=== PATIENT | female | born 1970 | race Caucasian/White ===

== ENCOUNTER 2023-08-25 12:43 | Emergency (ER) | payer BC, SELFPAY ==
[2023-08-25 13:00] VITALS: BP 133/84; PULSE 78; RESP 18; TEMP 36.6; O2SAT 100
--- NOTE | 2023-08-25 13:03 | ED.EYEPROB ---
HPI - Eye Problem General Chief complaint: Eye Problems Stated complaint: lt eye irritation Time Seen by Provider: 08/25/23 13:03 Source: patient Mode of arrival: ambulatory Limitations: no limitations History of Present Illness HPI Narrative: 53-year-old female presents with complaint of left eye redness, purulence drainage, irritation and itching started yesterday. Patient wears contacts. Does not sleep in her contacts. No history of contact related I infections. Denies injury. No vision changes. All systems reviewed and negative except as noted above. Related Data Allergies Allergy/AdvReac Type Severity Reaction Status Date / Time No Known Allergies Allergy Unverified 01/20/18 11:03 Review of Systems Review of Systems: CONSTITUTIONAL: Denies fever, chills, or sweats. EYES: Reports left eye redness, drainage, itching. Denies vision changes. ENT: Denies rhinorrhea, congestion, sore throat, or otalgia. CARDIOVASCULAR: Denies chest pain, palpitations, or edema. RESPIRATORY: Denies cough or dyspnea. GASTROINTESTINAL: Denies abdominal pain, nausea, vomiting, or diarrhea. GENITOURINARY: Denies dysuria or hematuria. SKIN: Denies rash or itching. MUSCULOSKELETAL: Denies back pain, joint pain, or myalgia. NEUROLOGIC: Denies headache, numbness, or weakness. PSYCHIATRIC: Denies anxiety or depression. All other systems reviewed are negative, except as documented in HPI. PMFSH Comments At time of signature, agree with nursing past medical, surgical, social and family history. There is no relevant family history pertinent to the presenting complaint. Exam Narrative: GENERAL: This is a well-nourished, well-developed patient, in no apparent distress. HEAD: normocephalic, atraumatic. EYES: PERRL. Sclera And conjunctiva of left eye erythematous. Conjunctivae mild swelling. No drainage noted at this time. Vision is grossly intact. EARS: External ears normal NOSE: External nose normal NECK: Neck supple, non-tender without lymphadenopathy, masses or thyromegaly. CARDIOVASCULAR: Regular rate and rhythm without murmurs, gallops, or rubs. RESPIRATORY: Clear to auscultation. Breath sounds equal bilaterally. No wheezes, rales, or rhonchi. SKIN: warm, Dry, intact with no suspicious lesions or rash, good texture and turgor. NEURO: awake, alert, and oriented to person, place and time. There were no obvious focal neurologic abnormalities. EXTREMITIES: No joint tenderness, effusion, or edema noted. Course Course Level of Care: Express Care Visit Vital Signs Vital signs: Vital Signs Temperature 36.6 C 08/25/23 13:00 Pulse Rate 78 08/25/23 13:00 Respiratory Rate 18 08/25/23 13:00 Blood Pressure 133/84 08/25/23 13:00 Pulse Oximetry 100 08/25/23 13:00 Oxygen Delivery Room Air 08/25/23 13:00 Temperature 36.6 C 08/25/23 13:00 Pulse Rate 78 08/25/23 13:00 Respiratory Rate 18 08/25/23 13:00 Blood Pressure 133/84 08/25/23 13:00 Pulse Oximetry 100 08/25/23 13:00 Oxygen Delivery Room Air 08/25/23 13:00 Reviewed MDM - Eye Problem MDM Narrative Medical decision making narrative: Patient is aware of diagnosis, understands and agrees to treatment plan. Anticipatory guidance given. Patient agrees to follow-up as directed and is aware of reasons to seek care at the emergency department. Portions of this record may have been created with voice recognition software Differential Diagnosis Differential diagnosis: Likely conjunctivitis Discharge Plan Discharge Clinical Impression: Acute bacterial conjunctivitis of left eye Patient Disposition: Home, Self-Care Condition: Stable Instructions: Antibiotic Form, Conjunctivitis (ED) Additional Instructions: Please antibiotic eyedrops as prescribed. Wash hands before and after placing drops. Do not wear a new pair of contacts until all symptoms have resolved. Follow-up with an senior label specialist if symptoms
== END 2023-08-25 13:11 | disposition home or self-care (01) ==
PROVIDERS: Emergency Provider Nurse Practitioner Family; PCP Physician Assistant Medical
DX: H10.32 Unspecified acute conjunctivitis, left eye (principal)
CPT/HCPCS: 99213; G0463

== ENCOUNTER 2023-12-21 09:09 | Emergency (ER) | payer BC, SELFPAY ==
[2023-12-21 09:57] VITALS: BP 158/80; PULSE 78; RESP 16; TEMP 36.8; O2SAT 100
[2023-12-21 09:59] VITALS: BP 158/80; PULSE 78; RESP 16; TEMP 36.8; O2SAT 100
--- NOTE | 2023-12-21 10:26 | ED.SKABFB ---
HPI - Skin/Abscess/Foreign Bdy General Chief complaint: Skin/Abscess/Foreign Body Stated complaint: dry skin,both ears Time Seen by Provider: 12/21/23 10:18 Source: patient and RN notes reviewed Mode of arrival: ambulatory Limitations: no limitations History of Present Illness HPI narrative: Patient presents today complaining of irritation with dry and peeling skin to both external ears x1 month. Patient states symptoms started after she was sweating when her furnace was turned up at home. States the area in which the rash exists has not been worsening since onset. She has tried some salicylic acid lotion at home without relief. Patient does have psoriasis for which she uses Cosentyx. She has not had a psoriasis outbreak in several years. Related Data Home Medications Medication Instructions Recorded Confirmed hydroxychloroquine 200 mg tablet 200 mg PO BID 12/21/23 12/21/23 norethindrone 1 mg-ethinyl 1 tablet PO DAILY 12/21/23 12/21/23 estradiol 10 mcg (24)-iron 10 mcg(2) tablet (Lo Loestrin Fe) secukinumab 150 mg/mL subcutaneous 75 mg subcut WEEKLY 12/21/23 12/21/23 pen injector (Cosentyx Pen 300 mg/2 Pens () Allergies Allergy/AdvReac Type Severity Reaction Status Date / Time No Known Allergies Allergy Verified 12/21/23 09:37 Review of Systems Review of Systems: CONSTITUTIONAL: Denies body aches, fever, chills, or sweats. EYES: Denies visual changes, redness, or discharge. ENT: Denies rhinorrhea, congestion, sore throat, or otalgia. CARDIOVASCULAR: Denies chest pain, palpitations, or edema. RESPIRATORY: Denies cough or dyspnea. GASTROINTESTINAL: Denies abdominal pain, nausea, vomiting, or diarrhea. GENITOURINARY: Denies dysuria or hematuria. SKIN: + flaking peeling skin of bilateral ears MUSCULOSKELETAL: Denies back pain, joint pain, or myalgia. NEUROLOGIC: Denies headache, numbness, tingling, or weakness. PSYCH: Denies depression or anxiety. [facility] Past Medical History Medical History (Updated 12/21/23 @ 10:32 by Dilia Pablo, [employer], [employer]) Psoriasis Comments At time of signature, I have reviewed and agree with nursing past medical, surgical, social and family history unless otherwise noted. Please see nursing chart for further information. There is no relevant family history pertinent to the presenting complaint Exam Narrative: GENERAL: Well-appearing, well-nourished, and in no acute distress. HEAD: Normocephalic, atraumatic. EYES: EOMI. No redness or drainage. Conjunctivae normal. ENT: Mucous membranes pink and moist. NECK: Normal AROM. CHEST: No respiratory distress. EXTREMITIES: Normal range of motion. No edema. SKIN: Warm, dry. Bilateral external ears are mildly erythematous with excessive peeling and cracking of the entire external ear with erythema along the pre and post a regular area. This peeling skin does not include the ear canal. There is even scant edema to the external ear. There is no plaques to the affected area. No drainage. NEURO: No focal deficits. Alert and oriented x3. Gait steady. PSYCH: Normal affect. No signs of depression or anxiety. Course Course Level of Care: Express Care Visit Vital Signs Vital signs: Vital Signs Temperature 98.2 F 12/21/23 09:57 Pulse Rate 78 12/21/23 09:57 Respiratory Rate 16 12/21/23 09:57 Blood Pressure 158/80 H 12/21/23 09:57 Pulse Oximetry 100 12/21/23 09:57 Oxygen Delivery Room Air 12/21/23 09:57 Temperature 98.2 F 12/21/23 09:59 Pulse Rate 78 12/21/23 09:59 Respiratory Rate 16 12/21/23 09:59 Blood Pressure 158/80 H 12/21/23 09:59 Pulse Oximetry 100 12/21/23 09:59 Oxygen Delivery Room Air 12/21/23 09:59 Reviewed MDM - Skin/Abscess/Foreign Bdy MDM Narrative Medical decision making narrative: Patient's ears seem to be eczematous as opposed to having psoriasis plaques. They do not seem to have an infectious component at this time. Will prescribe a topical
== END 2023-12-21 10:36 | disposition home or self-care (01) ==
PROVIDERS: Emergency Provider Nurse Practitioner
DX: L30.9 Dermatitis, unspecified (principal); L40.9 Psoriasis, unspecified
CPT/HCPCS: 99213; G0463

== ENCOUNTER 2024-05-07 16:55 | Emergency (ER) | payer BC, SELFPAY ==
[2024-05-07 17:00] VITALS: BP 138/79; PULSE 82; RESP 16; TEMP 36.5; O2SAT 100
[2024-05-07 17:04] VITALS: BP 138/79; PULSE 82; RESP 16; TEMP 36.5; O2SAT 100
--- NOTE | 2024-05-07 17:08 | ED.EAR ---
HPI - Ear Problem General Chief complaint: Ear Stated complaint: ear infection Source: patient Mode of arrival: ambulatory Limitations: no limitations History of Present Illness HPI Narrative: 53-year-old female presented complaint of intermittent left ear pain for about 2 weeks. She states it started after she had water in the ear. States the pain worsened this morning and she is unable to hear out of the ear. Denies ear drainage, tinnitus, dizziness, nausea, vomiting, nasal congestion, fever. Has taken ibuprofen. MD Complaint: ear pain Related Data Home Medications Medication Instructions Recorded Confirmed hydroxychloroquine 200 mg tablet 200 mg PO BID 12/21/23 05/07/24 norethindrone 1 mg-ethinyl 1 tablet PO DAILY 12/21/23 05/07/24 estradiol 10 mcg (24)-iron 10 mcg(2) tablet (Lo Loestrin Fe) risankizumab-rzaa 150 mg/mL mg subcut 05/07/24 05/07/24 subcutaneous pen injector (Skyrizi) Allergies Allergy/AdvReac Type Severity Reaction Status Date / Time No Known Allergies Allergy Verified 05/07/24 17:03 Review of Systems Review of Systems: CONSTITUTIONAL: Denies malaise, chills, or fever. EYES: Denies visual changes, redness, or discharge. ENT: Denies rhinorrhea, congestion, sinus pain, and sore throat. Reports ear pain CARDIOVASCULAR: Denies chest pain, palpitations, or edema. RESPIRATORY: Denies cough or dyspnea. GASTROINTESTINAL: Denies abdominal pain, nausea, vomiting, diarrhea SKIN: Denies rash or itching. MUSCULOSKELETAL: Denies myalgia. NEUROLOGIC: Denies headache. All systems reviewed & are unremarkable except as noted in HPI and below PMFSH Past Medical History Medical History Psoriasis Comments At time of signature, agree with nursing past medical, surgical, social and family history. There is no relevant family history pertinent to the presenting complaint Exam Narrative: GENERAL: Well-appearing EYES: PERRLA, conjunctivae clear ENT: Nares clear. Mucous membranes moist. Right TM pearly carbajal with dull light reflex; left TM erythematous, bulging and intact with purulent effusion; canal erythematous, no drainage to canal no tragal tenderness. Oropharynx not erythematous without lesions. NECK: Supple. No lymphadenopathy CHEST: Clear to auscultation, breath sounds equal. HEART: Regular rate and rhythm. No murmur heard. SKIN: Warm, dry, no rash. NEURO: Alert and oriented x3. PSYCH: Normal mood and affect Course Course Emergency Course: Patient is aware of diagnosis, understands and agrees to treatment plan. Anticipatory guidance given. Patient agrees to follow-up as directed and is aware of reasons to seek care at the emergency department. Portions of this record may have been created with voice recognition software Level of Care: Express Care Visit Vital Signs Vital signs: Vital Signs Temperature 97.7 F 05/07/24 17:00 Pulse Rate 82 05/07/24 17:00 Respiratory Rate 16 05/07/24 17:00 Blood Pressure 138/79 05/07/24 17:00 Pulse Oximetry 100 05/07/24 17:00 Oxygen Delivery Room Air 05/07/24 17:00 Temperature 97.7 F 05/07/24 17:04 Pulse Rate 82 05/07/24 17:04 Respiratory Rate 16 05/07/24 17:04 Blood Pressure 138/79 05/07/24 17:04 Pulse Oximetry 100 05/07/24 17:04 Oxygen Delivery Room Air 05/07/24 17:04 Reviewed Medical Decision Making MDM Narrative Medical decision making narrative: Discussed physical exam findings consistent with both AOM and otitis externa. Reviewed prescriptions. Advised supportive measures and signs/symptoms to go to the ER. Patient is appropriate for outpatient treatment and follow-up. Differential Diagnosis Differential Diagnosis: Coronavirus, strep pharyngitis, allergic rhinitis, upper respiratory tract infection, sinusitis, rhinosinusitis, nasopharyngitis, viral pharyngitis, otitis media, otitis externa, eustachian tube dysfunction, foreign bod
== END 2024-05-07 17:15 | disposition home or self-care (01) ==
PROVIDERS: Emergency Provider Nurse Practitioner Family; Referring Provider Family Medicine
DX: H60.92 Unspecified otitis externa, left ear (principal); H66.92 Otitis media, unspecified, left ear; L40.9 Psoriasis, unspecified
CPT/HCPCS: 99213; G0463